=== PATIENT | male | born 1965 | race Caucasian/White ===

== ENCOUNTER 2018-01-20 17:35 | Emergency (ER) | payer MEDICARE ==
[~2018-01-20] VITALS: Ht 175.3 cm; Wt 90.0 kg
[2018-01-20 18:37] LABS: BASOPHILS # (AUTO) 0.05 x10^3/uL (0-0.1); BASOPHILS % (AUTO) 1 % (0-1); EOSINOPHILS # (AUTO) 0.54 x10^3/uL (0-0.4); EOSINOPHILS % (AUTO) 6 % (1-7); LYMPHOCYTES # (AUTO) 0.96 x10^3/uL (1-3.4); LYMPHOCYTES % (AUTO) 10 % (22-44); MD NO; MEAN CORPUSCULAR HEMOGLOBIN 32.3 pg (27.5-34.5); MEAN CORPUSCULAR HGB CONC 34.4 g/dL (33.2-36.2); MEAN PLATELET VOLUME 9.7 fL (7.4-10.4); MONOCYTES # (AUTO) 0.69 x10^3/uL (0.2-0.8); MONOCYTES % (AUTO) 7 % (2-9); NEUTROPHILS # (AUTO) 7.46 x10^3/uL (1.8-6.8); NEUTROPHILS % (AUTO) 77 % (42-75); PLATELET COUNT 140 x10^3/uL (130-400); RED BLOOD COUNT 5.05 x10^6/uL (4.38-5.82)
[2018-01-20 18:46] LABS: ALANINE AMINOTRANSFERASE 79 U/L (12-78); ALBUMIN 3.9 g/dL (3.4-5.0); ANION GAP 11 mmol/L (5-15); CALCIUM 8.8 mg/dL (8.5-10.1); CHLORIDE 101 mmol/L (98-107); CREATININE 0.49 mg/dL (0.7-1.3)
[2018-01-20 18:48] LABS: ALKALINE PHOSPHATASE 50 U/L (45-117); BILIRUBIN,TOTAL 0.3 mg/dL (0.2-1.0); TOTAL PROTEIN 7.8 g/dL (6.4-8.2)
[2018-01-20 18:52] LABS: CULTURE INDICATED? YES; MICROSCOPIC INDICATED
[2018-01-20 19:07] LABS: INTERNATIONAL NORMALIZED RATIO 7.02 (0.93-1.1); PROTHROMBIN TIME 70.3 Seconds (9.6-11.5)
[2018-01-20] MEDS ORDERED: PHYTONADIONE 10 MG/ML, 1ML IM ONE (19:30)
[2018-01-20] MEDS ORDERED: PHYTONADIONE 10 MG/ML, 1ML SQ ONE (19:30)
[2018-01-20] MEDS ORDERED: PHYTONADIONE 10 MG/ML, 1ML ONE (19:50)
[2018-01-20 20:44] VITALS: BP 150/90
== END 2018-01-20 20:46 | disposition home or self-care (01) ==
LOC: ED 18:42
DX: F10.20 Alcohol dependence, uncomplicated (principal); R31.9 Hematuria, unspecified; R79.1 Abnormal coagulation profile; G61.0 Guillain-Barre syndrome
CPT/HCPCS: 36415; 80053; 81001; 85025; 85610; 85730; 87077; 87086; 96372; 99284; J3430

== ENCOUNTER 2018-01-22 11:14 | Emergency (ER) | payer MEDICARE ==
[~2018-01-22] VITALS: Ht 175.3 cm; Wt 90.0 kg
[2018-01-22] MEDS ORDERED: WARF7.5T6 PO (12:44)
[2018-01-22] MEDS ORDERED: VARE0.5T PO (12:44)
[2018-01-22] MEDS ORDERED: ALBU0.63 NEB (12:45)
[2018-01-22] MEDS ORDERED: HYDR12.53 PO (12:45)
[2018-01-22] MEDS ORDERED: BUDE10.2 INH (12:45)
[2018-01-22 13:15] VITALS: BP 135/85
[2018-01-22 13:31] LABS: BASOPHILS # (AUTO) 0.06 x10^3/uL (0-0.1); BASOPHILS % (AUTO) 1 % (0-1); EOSINOPHILS % (AUTO) 7 % (1-7); LYMPHOCYTES # (AUTO) 1.06 x10^3/uL (1-3.4); LYMPHOCYTES % (AUTO) 12 % (22-44); MD NO; MEAN CORPUSCULAR HEMOGLOBIN 31.8 pg (27.5-34.5); MEAN CORPUSCULAR HGB CONC 34.2 g/dL (33.2-36.2); MEAN CORPUSCULAR VOLUME 93.1 fL (81-97); MEAN PLATELET VOLUME 9.7 fL (7.4-10.4); MONOCYTES # (AUTO) 0.94 x10^3/uL (0.2-0.8); MONOCYTES % (AUTO) 11 % (2-9); NEUTROPHILS # (AUTO) 6.07 x10^3/uL (1.8-6.8); NEUTROPHILS % (AUTO) 70 % (42-75); PLATELET COUNT 136 x10^3/uL (130-400); RED BLOOD COUNT 5.16 x10^6/uL (4.38-5.82); RED CELL DISTRIBUTION WIDTH 14.9 % (9.4-14.8)
[2018-01-22 13:41] LABS: CULTURE INDICATED? YES; MICROSCOPIC INDICATED
[2018-01-22 14:25] LABS: INTERNATIONAL NORMALIZED RATIO 1.12 (0.93-1.1); PROTHROMBIN TIME 11.6 Seconds (9.6-11.5)
== END 2018-01-22 15:22 | disposition home or self-care (01) ==
LOC: ED 14:00
DX: R31.0 Gross hematuria (principal)
CPT/HCPCS: 36415; 81001; 85025; 85610; 87077; 87086; 99284

== ENCOUNTER → 2018-01-23 | Outpatient (CLI) | payer MEDICARE ==
[~2018-01-23] MED LIST: ALBU0.63 NEB; BUDE10.2 INH; HYDR12.53 PO; VARE0.5T PO; WARF7.5T6 PO
== END | disposition home or self-care (01) ==
LOC: CFH 07:47
PROVIDERS: ATTEND Specialist
DX: I27.82 Chronic pulmonary embolism (principal)
CPT/HCPCS: 71275; 93970

== ENCOUNTER 2018-02-18 17:12 | Emergency (ER) | payer MEDICARE ==
[~2018-02-18] VITALS: Ht 175.3 cm; Wt 92.1 kg
[2018-02-18 17:12] VITALS: BP 131/97
[~2018-02-18 17:12] MED LIST changes: +ATROPINE SYRINGE 0.1 MG/ML, 10ML ONE; +EPINEPHRINE SYRINGE 0.1 MG/ML, 10ML ONE; +ETOMIDATE 20 MG/10 ML ONE; +SUCCINYLCHOLINE 20 MG/ML, 10ML ONE
[2018-02-18] MEDS ORDERED: HEPARIN 25,000 UNITS/500ML PMX 500 ML ONE (17:23)
[2018-02-18] MEDS ORDERED: SODIUM CHLORIDE FLUSH 10ML SYR IVF ONE (17:30)
[2018-02-18] MEDS ORDERED: LORazepam 2 MG/ML, 1ML ONE (17:38)
[2018-02-18 17:40] LABS: MEAN CORPUSCULAR HEMOGLOBIN 32.4 pg (27.5-34.5); MEAN CORPUSCULAR HGB CONC 33.5 g/dL (33.2-36.2); MEAN CORPUSCULAR VOLUME 96.9 fL (81-97); MEAN PLATELET VOLUME 8.9 fL (7.4-10.4); PLATELET COUNT 105 x10^3/uL (130-400); RED BLOOD COUNT 4.92 x10^6/uL (4.38-5.82); RED CELL DISTRIBUTION WIDTH 14.6 % (9.4-14.8)
[2018-02-18] MEDS ORDERED: PLEASE ENTER HEIGHT AND WEIGHT MC SCH (17:40)
[2018-02-18] MEDS ORDERED: HEPARIN 5,000 UNITS/ML, 1ML ONE (17:47)
[2018-02-18 17:49] LABS: ALBUMIN 3.3 g/dL (3.4-5.0); ANION GAP 25 mmol/L (5-15); CALCIUM 8.4 mg/dL (8.5-10.1); CHLORIDE 99 mmol/L (98-107); CREATININE 1.05 mg/dL (0.7-1.3)
[2018-02-18 17:52] LABS: TROPONIN I 0.029 ng/mL (0.000-0.045)
[2018-02-18] MEDS ORDERED: ALTEPLASE 1 MG/ML ONE (17:52)
[2018-02-18] MEDS ORDERED: OMNIPAQUE 350 MG/ML, 100ML BOTTLE ONE (17:55)
[2018-02-18 17:56] LABS: MD YES
[2018-02-18 17:59] LABS: BAND#(MANUAL) 1.24 x10^3/uL; BANDS%(MANUAL) 6 % (0-7); EOS#(MANUAL) 0.82 x10^3/uL (0.0-0.4); EOS% (MANUAL) 4 % (1-7); INTERNATIONAL NORMALIZED RATIO 1.06 (0.93-1.1); LYMPH#(MANUAL) 5.56 x10^3/uL (1-3.4); LYMPHS% (MANUAL) 27 % (22-44); MONOS#(MANUAL) 0.82 x10^3/uL (0.3-2.7); MONOS% (MANUAL) 4 % (2-9); MYELOCYTES# (MANUAL) 0.62 x10^3/uL (0-0); MYELOCYTES% (MANUAL) 3 % (0-0); PROTHROMBIN TIME 10.9 Seconds (9.6-11.5); SEG#(MANUAL) 11.54 x10^3/uL (1.8-6.8); SEGS% (MANUAL) 56 % (42-75)
[2018-02-18] MEDS ORDERED: HEPARIN 5,000 UNITS/ML, 1ML IV PRN (18:00)
[2018-02-18] MEDS ORDERED: HEPARIN 5,000 UNITS/ML, 1ML IV ONE (18:00)
[2018-02-18] MEDS ORDERED: HEPARIN 25,000 UNITS/500ML PMX 500 ML IV PRN (18:00)
[2018-02-18 18:02] LABS: <PLATELET ESTIMATE> DECREASED; ANISOCYTOSIS 1+; LARGE PLATELETS 1+
[2018-02-18] MEDS ORDERED: EPINEPHRINE 1 MG/ML, 30ML ONE (18:20)
[2018-02-18] MEDS ORDERED: EPINEPHRINE SYRINGE 0.1 MG/ML, 10ML ONE (18:20)
[2018-02-18] MEDS ORDERED: ATROPINE SYRINGE 0.1 MG/ML, 10ML ONE (18:20)
[2018-02-18] MEDS ORDERED: AMIODARONE 50 MG/ML, 3ML ONE (18:20)
[2018-02-18] MEDS ORDERED: SODIUM CHLORIDE 0.9%, 250ML ONE (18:20)
[2018-02-18] MEDS ORDERED: ETOMIDATE 40 MG/20 ML IVPush ONE (20:00)
[2018-02-18] MEDS ORDERED: ALTEPLASE 100 MG in BAG 1 EACH IV ONE (20:00)
[2018-02-18] MEDS ORDERED: SUCCINYLCHOLINE 20 MG/ML, 10ML IVPush ONE (20:00)
[2018-02-18] MEDS ORDERED: EPINEPHRINE 2 MG in SODIUM CHLORIDE 0.9% 249 ML IV PRN (20:14)
[2018-02-18] MEDS ORDERED: FAMOTIDINE 20 MG/2 ML ONE (20:14)
[2018-02-18] MEDS ORDERED: ATROPINE SYRINGE 0.1 MG/ML, 10ML IVPush ONE (20:30)
[2018-02-18] MEDS ORDERED: AMIODARONE 50 MG/ML, 3ML IVPush ONE (20:30)
[2018-02-18] MEDS ORDERED: EPINEPHRINE 1 MG/ML, 1ML IVPush ONE (20:30)
== END 2018-02-18 20:35 | disposition expired ==
LOC: ED 20:28
DX: I46.9 Cardiac arrest, cause unspecified (principal); R09.2 Respiratory arrest; I26.99 Other pulmonary embolism without acute cor pulmonale; J44.9 Chronic obstructive pulmonary disease, unspecified; R79.1 Abnormal coagulation profile
CPT/HCPCS: 31500; 36415; 71045; 71275; 80047; 80048; 82040; 82803; 83880; 84484; 85025; 85520; 85610; 85730; 87070; 87077; 87186; 87205; 92950; 92960; 94002; 96365; 96375; 99291; J0171; J0282; J0330; J0461; J2997; J7050; Q9967